=== PATIENT | female | born 1975 | race Caucasian/White ===

== ENCOUNTER 2018-07-08 14:35 | Inpatient (IN) | payer MEDICAID ==
[~2018-07-08] VITALS: Ht 177.8 cm; Wt 108.9 kg
[2018-07-08 14:42] VITALS: BP_SYST 164
--- NOTE | 2018-07-08 15:32 | NUR ---
Patient to ER bed 8 to gown for evaluation. Side rails up.
--- NOTE | 2018-07-08 15:35 | NUR ---
Pt brought by family member,A&Ox4, pt presents to ER with R foot pain , pt states she has a diabetic ulcer and was told she needed a R 3rd toe amputation, pt afebrile, VS WNL.
[2018-07-08 15:37] LABS: CALCIUM 9.1 mg/dL (8.4-11.0); CREATININE 0.8 mg/dL (0.55-1.30); POTASSIUM 4.1 mmol/L (3.5-5.1)
[2018-07-08 15:40] LABS: INR 0.9 (0.8-1.2); PROTHROMBIN TIME 9.4 SECS (9.5-12.5)
[2018-07-08 15:42] LABS: ALBUMIN 2.9 g/dL (3.4-4.8); TOTAL BILIRUBIN 0.3 mg/dL (0.0-1.0)
--- NOTE | 2018-07-08 15:54 | NUR ---
Dr Dewey at bedside examining patient
[2018-07-08] MEDS ORDERED: PIPERACILLIN/TAZO 4.5 GM in NS 100 ML IV ONE (16:00)
[2018-07-08] MEDS ORDERED: NACL 0.9% 3,000 ML IV ONE (16:00)
[2018-07-08] MEDS ORDERED: VANCOMYCIN HCL 1,000 MG in NS 250 ML IV ONE (16:00)
[2018-07-08] MEDS ORDERED: MORPHINE 4 MG/ML INJ. SYRINGE IVP ONE ×2 (16:00→17:45)
[2018-07-08] MEDS ORDERED: ONDANSETRON HCL 4 MG/2 ML VIAL IVP ONE ×2 (16:00→20:00)
[2018-07-08 16:09] LABS: BASOPHILS % (AUTO) 0.1 % (0.0-2.0); EOSINOPHILS # (AUTO) 0.1 K/uL (0.0-0.4); EOSINOPHILS % (AUTO) 0.4 % (0.0-4.0); HEMATOCRIT 39.2 % (36-48); HEMOGLOBIN 13.3 g/dL (12.0-16.0); LYMPHOCYTES # (AUTO) 1.1 K/uL (1.0-5.5); LYMPHOCYTES % (AUTO) 6.3 % (20.5-51.5); MEAN CORPUSCULAR HEMOGLOBIN 27 pg (27-31); MEAN CORPUSCULAR HGB CONC 34 % (32-36); MEAN CORPUSCULAR VOLUME 81 fL (79.0-98.0); MONOCYTES # (AUTO) 0.6 K/uL (0.0-1.0); MONOCYTES % (AUTO) 3.6 % (1.7-9.3); NEUTROPHILS # (AUTO) 15.2 K/uL (1.8-7.7); NEUTROPHILS % (AUTO) 89.6 % (40.0-70.0); PLATELET COUNT (AUTO) 512 K/uL (130-430); RED BLOOD CELL COUNT(AUTO) 4.85 MIL/uL (4.2-6.2); RED CELL DISTRIBUTION WIDTH 11.7 % (9.0-15.0)
[2018-07-08] MEDS ORDERED: PIPERACILLIN/TAZOBACTAM 4.5 GM/VIAL (ZOSYN) IV ONE (16:13)
--- NOTE | 2018-07-08 16:27 | NUR ---
Pt medicated for pain as ordered, well tolerated.
[2018-07-08] MEDS ORDERED: VANCOMYCIN HCL 1000 MG/VIAL IV ONE (16:40)
[2018-07-08] MEDS ORDERED: GLU500 PO (16:51)
--- NOTE | 2018-07-08 17:30 | NUR ---
Pt on stable condition, pt A&Ox4, respirations even and unlabored
--- NOTE | 2018-07-08 18:20 | NUR ---
Patient will be admitted to care of Dr Larson . Admitted to Medsurg unit. Will go to room 127A . Belongings list completed. Summary report printed. Report will be given at bedside.
--- NOTE | 2018-07-08 18:20 | NUR ---
Transfer to [facility]. IV present no sign or symptom of infiltration.
--- NOTE | 2018-07-08 18:22 | NUR ---
ADMISSION NOTE Received patient from ER via meghan, received report from MAYRA CALLAWAY. Patient admitted with diagnosis of CELLULITIS RIGHT FOOT AND GANGRENE OF RIGHT THIRD TOE. Patient oriented to hospital routine, call light, toileting and safety-patient verbalized understanding.
[2018-07-08 18:30] VITALS: BP_SYST 159
[2018-07-08] MEDS: KCL 20 mEq in 0.45% NS 1000 mL 1,000 ML IV SCH (18:45)
--- NOTE | 2018-07-08 18:45 | NUR ---
PT REORIENTED TO CALL LIGHT USE. BED ALARM IN PLACE WITH BED IN THE LOWEST POSITION. FAMILY AT BEDSIDE.
--- NOTE | 2018-07-08 18:51 | NUR ---
MD ROUNDS- DR CAPUTO T BEDSIDE AT THIS TIME.
--- NOTE | 2018-07-08 19:00 | NUR ---
CLOSING NOTE WILL ENDORSE CARE TO EQUIPMENT PROCESSOR.
[2018-07-08] MEDS ORDERED: ACETAMINOPHEN 325 MG TABLET PO PRN (19:30)
--- NOTE | 2018-07-08 19:40 | NUR ---
ROUNDS PATIENT RESTING COMFORTABLY IN BED, NOT IN DISTRESS, VITALS STABLE. DENIES ANY PAIN AND DISCOMFORT AT THIS TIME. ASSESSMENT DONE AND DOCUMENTED. SEE FLOWSHEET. NEEDS ATTENDED TO. SAFETY MEASURES IN PLACED. BED IN LOW AND LOCKED POSITION. CALL LIGHT PLACED WITHIN REACH.
[2018-07-08] MEDS ORDERED: D5W 1,000 ML IV PRN (19:45)
[2018-07-08] MEDS ORDERED: GLUCOSE 15 GM GEL (in 37.5 GM TUBE) PO PRN (19:45)
[2018-07-08] MEDS ORDERED: LISINOPRIL 20 MG TABLET PO ONE (19:45)
[2018-07-08] MEDS ORDERED: DEXTROSE 50%-WATER 50 ML DISP.SYRIN IVP PRN (19:45)
[2018-07-08 20:00] VITALS: BP_SYST 127
--- NOTE | 2018-07-08 21:25 | NUR ---
MEDICATIONS DUE MEDICATIONS GIVEN ORDERED, TOLERATED WELL. WILL CONTINUE TO MONITOR.
[2018-07-08] MEDS: INSULIN REGULAR, HUMAN 100 UNITS/ML, 10 ML VIAL (novoLIN R) SUBCUT PRN (21:44)
[2018-07-08] MEDS: ENOXAPARIN SODIUM 40 MG/0.4 ML SYRINGE SUBCUT SCH (21:47)
[2018-07-08 23:35] VITALS: BP_SYST 131
--- NOTE | 2018-07-09 00:10 | NUR ---
ROUNDS PATIENT ASLEEP, VITALS STABLE, NO SIGNS OF ANY PAIN AND DISCOMFORT NOTED. WILL CONTINUE TO MONITOR.
[2018-07-09] MEDS: HYDROcodone/ACETAMIN 10-325 MG TAB PO PRN ×3 (02:31→22:43)
[2018-07-09 02:59] LABS: BILIRUBIN,URINE NEGATIVE (NEGATIVE); BLOOD, URINE NEGATIVE (NEGATIVE); CLARITY/URINE CLEAR (CLEAR); COLOR,URINE YELLOW (YELLOW); GLUCOSE,URINE 2+ (NEGATIVE); KETONES,URINE 3+ (NEGATIVE); LEUKOCYTE ESTERASE ,URINE TRACE (NEGATIVE); NITRITE, URINE NEGATIVE (NEGATIVE); PROTEIN URINE TRACE (NEGATIVE); UROBILINOGEN,URINE 0.2 (0.2-1.0)
[2018-07-09 03:44] LABS: BACTERIA,URINE FEW /HPF (None Seen); RBC,URINE 0-3 /HPF (0-3)
--- NOTE | 2018-07-09 04:13 | NUR ---
PATIENT RESTING: Patient resting quietly. No acute distress noted. Vital signs within normal range.
--- NOTE | 2018-07-09 04:38 | NUR ---
CONSULTATION PAGED/CALLED Reason for Consultation: RT FOOT INFECTION Person Who was Notified: ARMANDO Consulting Physician: DR. BURNHAM Ordering Physician: DR. CAPUTO
[2018-07-09] MEDS: VANCOMYCIN HCL 1,500 MG in NS 250 ML IV SCH ×2 (05:34→17:20)
[2018-07-09] MEDS: KCL 20 mEq in 0.45% NS 1000 mL 1,000 ML IV SCH ×2 (05:35→19:00)
[2018-07-09] MEDS: INSULIN REGULAR, HUMAN 100 UNITS/ML, 10 ML VIAL (novoLIN R) SUBCUT PRN ×4 (05:42→22:35)
--- NOTE | 2018-07-09 05:57 | NUR ---
CLOSING NOTES PATIENT AWAKE, VITALS STABLE, NO PAIN AT THIS TIME. ACCU CHECK DONE WITH BLOOD SUGAR OF 231, REGULAR INSULIN 4 UNITS GIVEN ORDERED PER SLIDING SCALE. ALL NEEDS ATTENDED TO. CALL LIGHT PLACED WITHIN REACH.
--- NOTE | 2018-07-09 05:59 | NUR ---
CONSULTATION PAGED/CALLED Reason for Consultation: cellulites of right foot and gangrene of 3rd toe Person Who was Notified: Festus Consulting Physician: Dr. Dubon Telephone Order Clerk Room Service Specialty: SX Ordering Physician: Dr. Proctor
--- NOTE | 2018-07-09 07:57 | NUR ---
Nutrition Update Simon Scale 18 noted. Pt admitted for cellulitis of R foot and gangrene of the third R. Diet: [facility] [place] BMI: 34.4 kg/m2 RD to follow per nutrition care standards.
--- NOTE | 2018-07-09 08:00 | NUR ---
OPENING NOTE PATIENT RECEIVED RESTING IN BED, PATIENT IS AWAKE, ALERT, AND ORIENTED, PATIENT DENIES ANY PAIN OR ACUTE DISTRESS, ASSESSMENT COMPLETED, BREATHING IS EVEN AND UNLABORED, EDUCATED PATIENT ON PLAN OF CARE AND CALL LIGHT SYSTEM, IVF INFUSING WELL WITH NO SIGNS OF INFILTRATION, WILL CONTINUE TO MONITOR, SAFETY PRECAUTIONS IN PLACE, CALL LIGHT WITHIN REACH.
[2018-07-09 08:05] VITALS: BP_SYST 129
[2018-07-09] MEDS: ONDANSETRON HCL 4 MG/2 ML VIAL IVP PRN (08:27)
[2018-07-09] MEDS: metFORMIN HCL 500 MG TABLET PO SCH ×2 (08:27→17:20)
[2018-07-09] MEDS: LISINOPRIL 20 MG TABLET PO SCH (08:28)
--- NOTE | 2018-07-09 10:15 | NUR ---
NOTES PATIENT IS RESTING IN BED, PATIENT DENIES ANY ACUTE DISTRESS OR PAIN AT THIS TIME, PATIENT TOLERATING DIET WELL, NO NAUSEA OR VOMITING AT THIS TIME, IVF INFUSING WELL WITH NO SIGNS OF INFILTRATION, WILL CONTINUE TO MONITOR, SAFETY PRECAUTIONS IN PLACE, CALL LIGHT WITHIN REACH.
[2018-07-09 11:17] VITALS: BP_SYST 142
--- NOTE | 2018-07-09 11:35 | NUR ---
BLOOD GLUCOSE IS 329 AT THIS TIME, GIVEN INSULIN FOR COVERAGE PER SLIDING SCALE.
--- NOTE | 2018-07-09 13:10 | NUR ---
NOTES PATIENT IS RESTING IN BED, NO SIGNS OF ACUTE DISTRESS OR PAIN IS NOTED AT THIS TIME, IVF INFUSING WELL WITH NO SIGNS OF INFILTRATION, BREATHING IS EVEN AND UNLABORED, WILL CONTINUE TO MONITOR, SAFETY PRECAUTIONS IN PLACE, CALL LIGHT WITHIN REACH.
--- NOTE | 2018-07-09 13:41 | NUR ---
Dietitian Recommendations * Recommend continuing [facility] diet per LP, RD Please refer to Nutrition Assessment for details.
--- NOTE | 2018-07-09 14:45 | NUR ---
NOTES PATIENT IS RESTING IN BED, PATIENT IS AWAKE, ALERT AND ORIENTED X4, BREATHING IS EVEN AND UNLABORED, PAIN IS CONTROLLED AT THIS TIME, NO ACUTE DISTRESS NOTED, IVF INFUSING WELL WITH NO SIGNS OF INFILTRATION, WILL CONTINUE TO MONITOR, SAFETY PRECAUTIONS IN PLACE, CALL LIGHT WITHIN REACH.
[2018-07-09 16:17] VITALS: BP_SYST 140
--- NOTE | 2018-07-09 16:47 | NUR ---
NOTES PATIENT IS RESTING IN BED, PATIENT IS A&OX4, PATIENT DENIES ANY PAIN OR ACUTE DISTRESS AT THIS TIME, BREATHING IS EVEN AND UNLABORED, IVF INFUSING WELL, SAFETY PRECAUTIONS IN PLACE, CALL LIGHT WITHIN REACH.
--- NOTE | 2018-07-09 18:21 | NUR ---
CLOSING NOTE PATIENT IS RESTING IN BED, NO ACUTE DISTRESS IS NOTED, PATIENT IS AWAKE, ALERT, AND ORIENTED, PAIN IS CONTROLLED AT THIS TIME, BREATHING IS EVEN AND UNLABORED, IVF INFUSING WELL WITH NO SIGNS OF INFILTRATION, ALL NEEDS WERE MET THROUGHOUT SHIFT, WILL ENDORSE REPORT TO ONCOMING NURSE, SAFETY PRECAUTIONS IN PLACE, CALL LIGHT WITHIN REACH.
[2018-07-09 20:00] VITALS: BP_SYST 110
--- NOTE | 2018-07-09 20:00 | NUR ---
Initial PM Note Pt is fully AAO x4. Pt is resting comfortably in bed. No c/o pain or discomfort and no acute distress noted at this time. Skin is warm and dry to touch. No signs or symptoms of hypoglycemia or hyperglycemia noted. RLE is elevated on a pillow. IVF of 1/2 NS + 20meq KCL is infusing well in LAC at 75ml/hr without any signs of infiltration. Fall and safety precautions are in place.
[2018-07-09] MEDS: CEFEPIME 1 GM in D5W 50 ML IV SCH (22:24)
[2018-07-09] MEDS: ENOXAPARIN SODIUM 40 MG/0.4 ML SYRINGE SUBCUT SCH (22:35)
--- NOTE | 2018-07-09 22:35 | NUR ---
Blood Sugar Accucheck 231 and 4 units Regular Insulin was given SQ. Skin remains warm and dry to touch. Pt ate 100% HS snacks. IVF is infusing well in [facility]. Fall and safety precautions are in place.
--- NOTE | 2018-07-09 22:43 | NUR ---
Pain Medication Pt c/o pain in her right foot. Per her request, [place] 10/325mg 1 tablet was given po with pain relief. Fall and safety precautions are in place. IVF is infusing well in [facility].
[2018-07-09 23:33] VITALS: BP_SYST 114
[2018-07-10] MEDS: KCL 20 mEq in 0.45% NS 1000 mL 1,000 ML IV SCH (00:07)
--- NOTE | 2018-07-10 01:00 | NUR ---
Rounds Pt is sleeping without any distress noted. IVF is infusing well in LFA. Fall and safety precautions are in place.
--- NOTE | 2018-07-10 03:00 | NUR ---
Rounds Pt is sleeping comfortably in bed. IVF is infusing well in [facility]. Fall and safety precautions are in place.
--- NOTE | 2018-07-10 05:00 | NUR ---
Rounds Pt is sleeping comfortably in bed with IVF infusing well in [facility]. Fall and safety precautions are in place.
[2018-07-10] MEDS: VANCOMYCIN HCL 1,500 MG in NS 250 ML IV SCH ×2 (05:34→17:46)
[2018-07-10] MEDS: ONDANSETRON HCL 4 MG/2 ML VIAL IVP PRN (06:24)
[2018-07-10] MEDS: INSULIN REGULAR, HUMAN 100 UNITS/ML, 10 ML VIAL (novoLIN R) SUBCUT PRN ×4 (06:34→21:38)
--- NOTE | 2018-07-10 06:59 | NUR ---
Closing Note Pt is resting quietly in bed and no distress noted. Accucheck 268 this AM and 6 units Regular Insulin was given SQ. Skin remains warm and dry to touch. Fall and safety precautions are in place. Will endorse to day shift nurse.
[2018-07-10 07:00] LABS: BASOPHILS % (AUTO) 0.3 % (0.0-2.0); EOSINOPHILS # (AUTO) 0.1 K/uL (0.0-0.4); EOSINOPHILS % (AUTO) 0.8 % (0.0-4.0); HEMATOCRIT 30.3 % (36-48); LYMPHOCYTES # (AUTO) 2.3 K/uL (1.0-5.5); LYMPHOCYTES % (AUTO) 16.3 % (20.5-51.5); MEAN CORPUSCULAR HEMOGLOBIN 27 pg (27-31); MEAN CORPUSCULAR HGB CONC 33 % (32-36); MEAN CORPUSCULAR VOLUME 82 fL (79.0-98.0); MONOCYTES # (AUTO) 1.2 K/uL (0.0-1.0); MONOCYTES % (AUTO) 8.2 % (1.7-9.3); NEUTROPHILS # (AUTO) 10.6 K/uL (1.8-7.7); NEUTROPHILS % (AUTO) 74.4 % (40.0-70.0); PLATELET COUNT (AUTO) 439 K/uL (130-430); RED BLOOD CELL COUNT(AUTO) 3.71 MIL/uL (4.2-6.2); RED CELL DISTRIBUTION WIDTH 12.3 % (9.0-15.0); WHITE BLOOD COUNT (AUTO) 14.2 K/uL (4.8-10.8)
[2018-07-10 07:11] LABS: CALCIUM 8.5 mg/dL (8.4-11.0); CREATININE 0.9 mg/dL (0.55-1.30); POTASSIUM 4.4 mmol/L (3.5-5.1)
--- NOTE | 2018-07-10 07:18 | NUR ---
Opening Note patient resting in bed, eyes closed, positioned to her side, breathing unlabored and symmetrical, foot elevated on pillow, safety precautions in place, call light and bedside table left within reach, will continue to monitor patient
[2018-07-10] MEDS: metFORMIN HCL 500 MG TABLET PO SCH ×2 (08:05→17:50)
[2018-07-10] MEDS: LISINOPRIL 20 MG TABLET PO SCH (08:06)
[2018-07-10] MEDS: CEFEPIME 1 GM in D5W 50 ML IV SCH ×2 (08:06→20:41)
--- NOTE | 2018-07-10 08:15 | NUR ---
Medication Administration educated patient regarding meds, verbalized understanding, tolerated well by mouth, IV site remains patent, she is eating breakfast at this time, educated patient on use of call light for assistance, verbalized understanding, call light and bedside table left within reach, will continue to monitor patient
[2018-07-10 08:16] VITALS: BP_SYST 137
[2018-07-10] MEDS: HYDROcodone/ACETAMIN 10-325 MG TAB PO PRN (11:42)
--- NOTE | 2018-07-10 11:48 | NUR ---
Blood Sugar/Pain Meds assessed, insulin provided per sliding scale, also provided [place] per pain scale protocol, educated her regarding med, verbalized understanding, educated patient on use of call light for assistance, verbalized understanding, call light and bedside table left within reach, will continue to monitor patient
[2018-07-10 12:30] VITALS: BP_SYST 128
--- NOTE | 2018-07-10 12:47 | NUR ---
Wound Care Consult performed at this time, Thomas evaluated wound, will follow thorough with recommendations, patient resting in bed at this time, no other needs, safety precautions remain in place, will continue to monitor patient
--- NOTE | 2018-07-10 12:47 | NUR ---
WOUND EVALUATION: Wound Consult received from Dr. Proctor. Thank you, Dr. Proctor, for the consult. Patient received in a Hughes Bed with a mattress, awake, alert, and oriented. Patient is able to turn in bed and use bedside commode independently. Simon Score is a 21. Patient was seen by shift mgr for an infection of the right third toe, and transferred to the Emergency Room with possible gangrene. Past Medical History: Diabetes Mellitus (noncompliant), Obesity, , left bunionectomy, gestational diabetes. Recent Labs: WBC 14.2, RBC 3.71, hemoglobin 10.0, hematocrit 30.3, sodium 132, chloride 97, BUN 14, creatinine 0.90, GFR 73, glucose 294, albumin 2.9, PT 9.4. Microbiology: Blood culture results 2 in progress. Urine culture results in progress. Intrinsic factors that delay wound healing: Diabetes mellitus, hypoalbuminemia. Extrinsic factors that delay wound healing: Decreased mobility. Right foot x-ray results: "1. Extensive osteolytic/destructive changes involving the third proximal, middle, and distal phalanges. Changes consistent with osteomyelitis." Dr. Dubon is on the case for a surgical consult, and is planning on amputation right third toe. Wound Assessment: 1. Right third toe: Necrotic wound, possible diabetic/neuropathic ulcer, present on admission. Wound bed has 100% black tissue (a mixture of eschar and slough, covering nearly entire dorsal aspect of toe). Foul odor, scant yellow purulent drainage. Roma-wound intact. Measures 5.8 cm x 3.0 cm. Extremity has calor, and 3+ pitting edema. Right foot has 5+ pitting edema. Purple discoloration present on medial aspect of foot, measuring 7.2 cm x 10.0 cm. Recommend: Cleanse wound with normal saline. Apply SurePrep to roma-wound. Apply Venelex ointment onto wound bed. Cover with nonadhesive foam dressing, then wrap with Joss wrap and secure with tape. Perform wound care daily, and as needed for dressing soiling or dislodgement. Also recommend: Encourage and assist patient as needed with repositioning every 2 hours with pillow support, and off-load pressure areas with pillows for pressure re-distribution. Offload, elevate and float bilateral heels with pillows. Perform skin care and monitor skin integrity Q shift.
[2018-07-10] MEDS ORDERED: BALSAM PERU/CASTOR OIL 60 GM OINT...G. TP ONE (13:30)
--- NOTE | 2018-07-10 14:30 | NUR ---
Patient Assisted to Commode at this time, ambulated with minimal assistance, patient placed back in bed, no other needs at this time, educated patient on use of call light for assistance, verbalized understanding, call light and bedside table left within reach, will continue to monitor patient
[2018-07-10 16:30] VITALS: BP_SYST 129
[2018-07-10] MEDS: glyBURIDE 5 MG TABLET PO SCH (17:50)
--- NOTE | 2018-07-10 17:55 | NUR ---
Meds/Dr. Dubon Rounds medications administered at this time as scheduled, educated patient regarding meds, verbalized understanding, tolerated well, IV site remains patent. Dr. Dubon educated patient regarding surgery tomorrow, verbalized understanding. family at bedside, will continue to monitor
--- NOTE | 2018-07-10 19:00 | NUR ---
Wound Care/Closing Note Wound care performed at this time, site cleansed, ointment placed and dressing applied, patient tolerated well, family at bedside, breathing unlabored on room air, IV site remains patent, educated patient on use of call light for assistance, verbalized understanding, call light and bedside table left within reach, will endorse to underground utility locator nurse
--- NOTE | 2018-07-10 19:35 | NUR ---
CHANGE OF SHIFT; pt. awake, alert with family at bedside,IV antibiotic infusing. rt. foot dressing intact, denies any pain at the moment. call light within reach. schedule for surgery in am, reminded to be NPO after midnight.
[2018-07-10 20:00] VITALS: BP_SYST 130
--- NOTE | 2018-07-10 21:00 | NUR ---
NOTES: IV site on left antecubital. Blood sugar checked 266. uses bedside commode. instructed to call if help needed and verbalized understanding.
[2018-07-10 23:55] VITALS: BP_SYST 136
[2018-07-11] VITALS: BP_SYST 128
--- NOTE | 2018-07-11 00:01 | NUR ---
NOTES: pt. kept NPO. repositioned self for comfort. call light within reach.
--- NOTE | 2018-07-11 02:26 | NUR ---
NOTE: pt. sleeping when checked. condition unchanged.
--- NOTE | 2018-07-11 04:04 | NUR ---
NOTES: pt. sleeping when checked.bed in lowest position.
[2018-07-11] MEDS: VANCOMYCIN HCL 1,500 MG in NS 250 ML IV SCH ×2 (04:52→17:15)
--- NOTE | 2018-07-11 05:00 | NUR ---
NOTES: awakened for IV antibiotic, IV site occluded,unable to flush, restarted another IV site on left hand with 22 gauge. rt/ foot dressing intact. call light within reach.
--- NOTE | 2018-07-11 05:29 | NUR ---
NOTES: consent signed for the schedule surgery. checklist initiated.
--- NOTE | 2018-07-11 06:45 | NUR ---
Closing NOTES: blood sugar checked 93. no complaints. IV antibiotic still in progress. needs attended. bed in lowest position, call light within reach.
[2018-07-11 07:35] VITALS: BP_SYST 142
--- NOTE | 2018-07-11 07:35 | NUR ---
INITIAL ROUNDS Received pt AAOx4, no s/s resp distress, no c/o pain or discomfort. Plan of care for the day reviewed with pt-pt verbalized her understanding. Pt assisted to bedside commode-she voided. Noted dressing to right 3rd toe with some light brown drainage and foul odor. Pain management, pre-op education, post-op education, skin and safety discussed-teach back done. Call light within reach.
--- NOTE | 2018-07-11 07:38 | NUR ---
endorsed pt. to incoming shift with nurse Rosy.
[2018-07-11] MEDS: glyBURIDE 5 MG TABLET PO SCH ×2 (08:00→18:31)
[2018-07-11] MEDS: metFORMIN HCL 500 MG TABLET PO SCH ×2 (08:00→18:30)
[2018-07-11] MEDS: LISINOPRIL 20 MG TABLET PO SCH (08:46)
[2018-07-11] MEDS: CEFEPIME 1 GM in D5W 50 ML IV SCH ×2 (08:47→20:12)
[2018-07-11] MEDS: BALSAM PERU/CASTOR OIL 60 GM OINT...G. TP SCH (09:00)
--- NOTE | 2018-07-11 10:10 | NUR ---
TO OR Pt left room to OR via bed in no distress. OR nurse Chon aware that Dr. Dubon has not signed the consent and that the anesthesiologist needs to sign the consent.
[2018-07-11] MEDS ORDERED: fentaNYL CITRATE/PF 100 MCG/2 ML AMP IVP PRN ×2 (10:45)
[2018-07-11] MEDS ORDERED: KETOROLAC TROMETHAMINE 30 MG VIAL IVP PRN (10:45)
[2018-07-11] MEDS ORDERED: ONDANSETRON HCL 4 MG/2 ML VIAL IVP PRN (10:45)
[2018-07-11] MEDS ORDERED: LANOLIN 7 GM OINT. TP ONE (11:35)
[2018-07-11] MEDS ORDERED: NS IRRIG SOLN 1000 ML IR ONE (11:35)
[2018-07-11] MEDS ORDERED: NS 1000 ML IV.SOLN IV ONE (11:35)
[2018-07-11] MEDS ORDERED: BUPIVACAINE /PF 0.75% 10 ML VIAL INJ ONE (11:35)
[2018-07-11] MEDS ORDERED: MIDAZOLAM HCL 5 MG/ML VIAL (VERSED) IV ONE (11:35)
[2018-07-11 12:00] VITALS: BP_SYST 144
--- NOTE | 2018-07-11 12:00 | NUR ---
BACK FROM OR Pt back from OR, received report from Chon CALLAWAY-she stated for nursing to take a picture with 1st dressing change per MD request. Vital signs stable, no c/o pain. Right foot with dressing clean, dry and intact. Family now at bedside. Call light within reach.
--- NOTE | 2018-07-11 14:05 | NUR ---
ROUNDS Pt sitting up in bed visiting with her family-no c/o pain or discomfort. Pt given fresh ice water. Needs met. Call light within reach.
[2018-07-11] MEDS: HYDROcodone/ACETAMIN 10-325 MG TAB PO PRN (16:04)
--- NOTE | 2018-07-11 16:05 | NUR ---
ROUNDS Pt c/o pain to right foot-pt given [place] as ordered and an ice pack was placed against dressing for pain. Pt's family remains at bedside. Call light within reach.
[2018-07-11 16:45] VITALS: BP_SYST 127
[2018-07-11] MEDS: INSULIN REGULAR, HUMAN 100 UNITS/ML, 10 ML VIAL (novoLIN R) SUBCUT PRN ×2 (17:30→21:40)
[2018-07-11 18:30] VITALS: BP_SYST 127
--- NOTE | 2018-07-11 18:47 | NUR ---
CLOSING NOTE Pt sitting up in bed visiting with her family, no c/o pain or discomfort. Pt's right foot elevated on pillow, dressing clean, dry and intact. Needs met, call light within reach.
--- NOTE | 2018-07-11 19:20 | NUR ---
CHANGE OF SHIFT; pt. wake ,alert in bed S/P right third toe amputation, dressing intact with raz bandage, keep elevated with pillow, able to move other toes, with tolerable pain, offered pain med. IV antibiotic still infusing. call light within reach, bed in low position.
[2018-07-11 20:00] VITALS: BP_SYST 114
--- NOTE | 2018-07-11 20:30 | NUR ---
NOTES: pt. resting when checked. Blood sugar checked 280 with sliding scale coverage.
--- NOTE | 2018-07-11 21:40 | NUR ---
NOTES: sliding scale coverage given , hs snack given. repositioned self for comfort.
[2018-07-12 00:30] VITALS: BP_SYST 128
--- NOTE | 2018-07-12 00:30 | NUR ---
NOTES: pt. sleeping when made rounds. IV to saline lock. no complaints of pain.
--- NOTE | 2018-07-12 03:15 | NUR ---
NOTES: condition unchanged. remained asleep.
[2018-07-12] MEDS: VANCOMYCIN HCL 1,500 MG in NS 250 ML IV SCH ×2 (05:30→17:05)
--- NOTE | 2018-07-12 06:00 | NUR ---
NOTES: pt. been sleeping at long intervals. used BSC and voided. IV antibiotic still in progress.
--- NOTE | 2018-07-12 06:30 | NUR ---
CLOSING NOTES: Blood sugar checked 120, no sliding scale coverage. pt. needs attended. for further care and assistance.
--- NOTE | 2018-07-12 07:20 | NUR ---
endorsed pt. to incoming shift with nurse Zuniga.
--- NOTE | 2018-07-12 07:22 | NUR ---
OPENING NOTE: MORNING REPORT WAS TAKEN FROM CONDENSER TUBE TENDER NURSE AT BEDSIDE. PATIENT IS ASLEEP IN BED WITH NO SIGNS OF DISTRESS. PATIENT ON ROOM AIR. ANTIBIOTICS INFUSING. PATIENT WOKEN. CALL LIGHT IS IN REACH. BED IN LOWEST POSITION WITH SIDE RAILS UP. BED DOESNT HAVE BED ALARM BUT EDUCATED PATIENT TO CALL IF SHE NEEDS HELP OR WANTS TO GET UP. VERBALIZED UNDERSTANDING. WILL CONTINUE TO MONITOR.
[2018-07-12] MEDS: metFORMIN HCL 500 MG TABLET PO SCH ×2 (08:33→17:05)
[2018-07-12] MEDS: glyBURIDE 5 MG TABLET PO SCH ×2 (08:33→17:05)
[2018-07-12] MEDS: LISINOPRIL 20 MG TABLET PO SCH (08:34)
[2018-07-12] MEDS: CEFEPIME 1 GM in D5W 50 ML IV SCH ×2 (08:34→20:57)
[2018-07-12 08:35] VITALS: BP_SYST 119
[2018-07-12] MEDS: BALSAM PERU/CASTOR OIL 60 GM OINT...G. TP SCH (09:00)
--- NOTE | 2018-07-12 10:05 | NUR ---
NOTE: APPLIED OINTMENTS TO PATIENT'S FEET. PATIENT LAYING IN BED WITH NO SIGNS OF DISTRESS. PATIENT HAS NO FURTHER REQUESTS. WILL CONTINUE TO MONITOR.
--- NOTE | 2018-07-12 11:35 | NUR ---
NOTE: PATIENT'S BLOOD SUGAR WAS TAKEN AND WAS 195. INSULIN GIVEN TO COVER. PATIENT NOT COMPLAINING OF DISTRESS. AT BEDSIDE. PATIENT HAS NO FURTHER REQUESTS. WILL CONTINUE TO MONITOR.
[2018-07-12] MEDS: INSULIN REGULAR, HUMAN 100 UNITS/ML, 10 ML VIAL (novoLIN R) SUBCUT PRN (11:36)
[2018-07-12 12:37] VITALS: BP_SYST 116
--- NOTE | 2018-07-12 14:49 | NUR ---
NOTE: PATIENT ASLEEP IN BED WITH NO SIGNS OF DISTRESS. CALL LIGHT IS IN REACH. WILL CONTINUE TO MONITOR.
[2018-07-12 16:12] VITALS: BP_SYST 121
--- NOTE | 2018-07-12 16:55 | NUR ---
NOTE: GAVE PATIENT SCHEDULED MEDICATION. PATIENT LAYING DOWN IN BED TALKING TO FAMILY AT BEDSIDE. PATIENT NOT COMPLAINING OF ANY DISTRESS. WILL CONTINUE TO MONITOR.
--- NOTE | 2018-07-12 17:14 | NUR ---
NOTE: CHECKED PATIENT'S BLOOD SUGAR AND WAS 140. NO COVER NEEDED. GIVEN PATIENT SCHEDULED MEDICATIONS. FAMILY AT BEDSIDE. PATIENT HAS NO FURTHER REQUESTS. WILL CONTINUE TO MONITOR.
--- NOTE | 2018-07-12 18:49 | NUR ---
CLOSING NOTE: PATIENT WENT TO RESTROOM. PATIENT BEING ASSISTED INTO BED BY BARBED WIRE MACHINE OPERATOR. PATIENT HAS NO REQUESTS AT MOMENT. PATIENT NOW SITTING IN BED WITH NO SIGNS OF DISTRESS. PATIENT ON ROOM AIR. FAMILY AT BEDSIDE. WILL CONTINUE TO MONITOR AND GIVE REPORT TO CORNETIST NURSE.
--- NOTE | 2018-07-12 19:15 | NUR ---
WOUND CARE: DR BERMUDEZ CAME TO SEE PATIENT. DID WOUND CARE. PICTURES WERE TAKEN. PACKED CLEANED WOUNDS WITH NS THEN PACKED WITH IODOFORM. DR COVERED WITH GAUZE AND WRAPPED IN SHELLIE BANDAGE. ASKED DR IF HE STILL WANTED VENELEX APPLIED TO WOUND BED BUT DR SAID IT DOESNT HAVE TO AND HE WOULD LOOK AT ORDERS.
--- NOTE | 2018-07-12 20:06 | NUR ---
initial notes: seen pt at bed, alert, awake,, oriented, stable. seen by dr. durant at bedside. first dressing change done by md. md is giving instruction to pt. pt tolerate well.needs attended at this time. will continue to follow-up.
[2018-07-12 20:39] VITALS: BP_SYST 132
[2018-07-12] MEDS: HYDROcodone/ACETAMIN 10-325 MG TAB PO PRN (20:57)
--- NOTE | 2018-07-12 21:08 | NUR ---
notes: pt is awake, alert. watching tv. c/o moderate pain to right foot. stable vital sign. assess pt. explained to pt her p[oc and her medication and side effects. pt verbalized understanding. family at bedside. needs attended. call light in reach. will continue to follow-up.
--- NOTE | 2018-07-12 22:15 | NUR ---
notes; pt is watching tv. no pain, stable. saline iv site. needs attended. call light in reach. will follow-up.
--- NOTE | 2018-07-12 23:20 | NUR ---
ENDORSED TO NILTON MEREDITH FOR CONTINUATION OF CARE.
[2018-07-13 00:27] VITALS: BP_SYST 139
--- NOTE | 2018-07-13 00:30 | NUR ---
ROUNDS/SNACKS Patient in bed, awake, no s/s of acute distress, denies pain or discomfort. Breathing even and unlabored. Patient requested snacks at this time, RN gave her a sandwich and juice. All needs met at this time. Call light with patient. Will continue to monitor.
--- NOTE | 2018-07-13 02:39 | NUR ---
ROUNDS Patient in bed, eyes closed, appears to be asleep. No signs of discomfort noted. Chest rise and fall even bilaterally. Call light with patient. Will continue to monitor.
--- NOTE | 2018-07-13 04:00 | NUR ---
ROUNDS Patient sleeping at this time. No s/s of acute distress noted. Breathing even and unlabored. Call light with patient. Will continue to monitor.
--- NOTE | 2018-07-13 05:17 | NUR ---
ROUNDS Patient sleeping at this time. NO signs of discomfort noted. Chest rise and fall even bilaterally. Call light with patient. Will continue to monitor.
[2018-07-13] MEDS: VANCOMYCIN HCL 1,500 MG in NS 250 ML IV SCH ×2 (05:41→17:24)
[2018-07-13] MEDS: INSULIN REGULAR, HUMAN 100 UNITS/ML, 10 ML VIAL (novoLIN R) SUBCUT PRN ×3 (06:24→17:35)
--- NOTE | 2018-07-13 06:45 | NUR ---
CLOSING NOTE Patient in bed sleeping at this time. NO s/s of acute distress noted. Breathing even and unlabored. IV antibiotic infusing, IV site shows no signs of infiltration or infection. Dressing intact on right foot, no signs of active bleeding noted. Skin warm and dry to touch, no signs of hypoglycemia noted. All of patient's needs met throughout shift. Fall and safety precautions maintained throughout shift. Will continue to monitor until patient care is endorsed to oncoming day shift nurse.
--- NOTE | 2018-07-13 07:54 | NUR ---
OPENING NOTE: MORNING REPORT WAS TAKEN AT BEDSIDE. PATIENT LAYING IN BED WITH NO SIGNS OF DISTRESS. PATIENT ON ROOM AIR. IV SALINE LOCKED. BED DOES NOT HAVE BED ALARM. EDUCATED PATIENT ON IMPORTANCE OF BED ALARM AND SAID SHE WILL CALL. BED IN LOWEST POSITION WITH CALL LIGHT IN REACH. WILL CONTINUE TO MONITOR.
[2018-07-13 08:40] VITALS: BP_SYST 107
[2018-07-13] MEDS: glyBURIDE 5 MG TABLET PO SCH ×2 (08:44→17:24)
[2018-07-13] MEDS: LISINOPRIL 20 MG TABLET PO SCH (08:44)
[2018-07-13] MEDS: metFORMIN HCL 500 MG TABLET PO SCH ×2 (08:44→17:24)
[2018-07-13] MEDS: CEFEPIME 1 GM in D5W 50 ML IV SCH (08:45)
[2018-07-13] MEDS ORDERED: FLUCONAZOLE 100 MG TABLET (DIFLUCAN) PO SCH (09:00)
--- NOTE | 2018-07-13 09:22 | NUR ---
NOTE: PATIENT SITTING IN BED WITH NO SIGNS OF DISTRESS. PATIENT SAID HER FOOT IS A LITTLE SORE. PATIENT SAID SHE IS TIRED BUT DIDNT SLEEP TO WELL. CALL LIGHT IS IN REACH. WILL CONTINUE TO MONITOR.
--- NOTE | 2018-07-13 11:40 | NUR ---
NOTE: PATIENT LAYING IN BED WITH NO SIGNS OF DISTRESS. TOOK PATIENT'S BLOOD SUGAR AND WAS 166. INSULIN GIVEN TO COVER. PATIENT NOT COMPLAINING OF PAIN. PATIENT HAS NO FURTHER REQUESTS. WILL CONTINUE TO MONITOR.
[2018-07-13 12:17] VITALS: BP_SYST 126
--- NOTE | 2018-07-13 13:48 | NUR ---
NOTE: PATIENT WORKING WITH PHYSICAL THERAPY. WILL CONTINUE TO MONITOR.
[2018-07-13] MEDS: BALSAM PERU/CASTOR OIL 60 GM OINT...G. TP SCH (14:39)
[2018-07-13] MEDS: HYDROcodone/ACETAMIN 10-325 MG TAB PO PRN (14:39)
--- NOTE | 2018-07-13 15:20 | NUR ---
: DR CAPUTO PAGED FOR ORDER OF BOOT AND FRONT WHEEL WALKER PER PHYSICAL THERAPY.
--- NOTE | 2018-07-13 15:30 | NUR ---
WOUND CARE WAS DONE WOUND WAS DRAINING AFTER PHYSICAL THERAPY. GAVE PAIN MEDICATION PRIOR TO WOUND CARE. DID WOUND CARE DRESSING LIKE DR ELDRIDGE YESTERDAY.
[2018-07-13 16:08] VITALS: BP_SYST 142
--- NOTE | 2018-07-13 17:25 | NUR ---
NOTE: CHECKED PATIENT'S BLOOD SUGAR AND WAS 174. GAVE INSULIN TO COVER. GAVE PATIENT SCHEDULED MEDICATIONS. DR DISCHARGING PATIENT. PATIENT AWARE. WILL CONTINUE TO MONITOR.
[2018-07-13 17:46] VITALS: BP_SYST 142
[2018-07-13] MEDS ORDERED: DOXY100C PO (17:57)
[2018-07-13] MEDS ORDERED: CIPR-211 PO (17:57)
[2018-07-13] MEDS ORDERED: METF1000 PO (17:57)
[2018-07-13] MEDS ORDERED: LISI-600 PO (17:58)
--- NOTE | 2018-07-13 19:00 | NUR ---
CLOSING NOTE: PATIENT GETTING READY TO LEAVE. WENT OVER DISCHARGE PAPERWORK WITH PATIENT. GOT PATIENT SUPPLIES FOR WOUND CARE. GOT PATIENT SHOE AND CRUTCHES FOR HOME. GAVE PATIENT PRESCRIPTION. PATIENT VERBALIZED UNDERSTANDING. WAITING FOR TO PICK PATIENT UP. PATIENT HAS NO SIGNS OF DISTRESS. PATIENT ON ROOM AIR. WILL CONTINUE TO MONITOR AND GIVE REPORT TO RESTAURANT CREW NURSE.
[2018-07-13 19:30] VITALS: BP_SYST 134
--- NOTE | 2018-07-13 20:00 | NUR ---
pt.d/c home instable condition.pt.assessed p/t d/c home.v/s assessed;values w/in normal limits.no c/o pain,nausea. pt.presents wounds;rt.foot.i have assessed the foot;skin hue;pink;pale.tactile;pt.stated can feel tactile stimulation. movement.pt,.capable to move the digits;rt.foot.d/c paper work ;prepare per rizwana,day shift.distributed per rizwana.i have removed the iv access and the id band.all pt's belongings accounted for.
== END 2018-07-13 19:41 | disposition home or self-care (01) | DRG 710 ==
LOC: SED 14:35 → SMU 17:53
PROVIDERS: ADMIT Family Medicine; ATTEND Family Medicine
PROC: 0Y6T0Z3 Detachment at Right 3rd Toe, Low, Open Approach (ICD-10-PCS; 2018-07-11)
PROC: 0H9MXZZ Drainage of Right Foot Skin, External Approach (ICD-10-PCS; 2018-07-11)
PROC: 0JBQ0ZZ Excision of Right Foot Subcutaneous Tissue and Fascia, Open Approach (ICD-10-PCS; principal; 2018-07-11 10:00)
DX: A41.9 Sepsis, unspecified organism (principal); E11.52 Type 2 diabetes mellitus with diabetic peripheral angiopathy with gangrene; E11.69 Type 2 diabetes mellitus with other specified complication; E11.65 Type 2 diabetes mellitus with hyperglycemia; L03.115 Cellulitis of right lower limb; M86.8X7 Other osteomyelitis, ankle and foot; L97.519 Non-pressure chronic ulcer of other part of right foot with unspecified severity; F32.9 Major depressive disorder, single episode, unspecified; B37.49 Other urogenital candidiasis; E66.9 Obesity, unspecified; I10 Essential (primary) hypertension; L02.611 Cutaneous abscess of right foot; Z91.14 Patient's other noncompliance with medication regimen; Z91.19 Patient's noncompliance with other medical treatment and regimen; Z68.34 Body mass index [BMI] 34.0-34.9, adult; Z79.899 Other long term (current) drug therapy; Z98.891 History of uterine scar from previous surgery
CPT/HCPCS: 36415; 76700-TC; 80048; 80053; 80202-TC; 81000-TC; 82962; 83036; 83605; 85025; 85610-TC; 85730-TC; 87040-TC; 87070; 87070-TC; 87075-TC; 87081; 87086; 87186-TC; 88304; 88305; 88311; 93923; 96365; 96366; 96367; 96375; 96376; 99285; J0692; J1650; J1815; J2250; J2270; J2405; J2543; J3370; J3480; J3490; J7030; J7040; J7050; J7060